=== PATIENT | female | born 1935 | race Caucasian/White ===

== ENCOUNTER → 2016-09-29 | Outpatient (CLI) | payer MEDICARE ==
--- NOTE | 2016-09-29 14:08 | Diagnostic Imaging Report ---
EXAM: Bilateral digital diagnostic mammography, with computer aided detection system (CAD). Left breast ultrasound. DATE: September 29, 2016. COMPARISON: May 13, 2012. March 17, 2011. INDICATION: A 80-year-old female, palpable abnormality in the left breast. FINDINGS: There are scattered fibroglandular densities. There are benign secretory calcifications as well as benign oil cysts. The marker denoting the area of palpable concern in the left breast is in the upper-inner quadrant and does overlie an oil cyst. There is no suspicious mammographic abnormality within either breast. Targeted ultrasound of the left breast in the area of palpable concern was performed. At the area of palpable abnormality, there is a very superficially located round circumscribed anechoic mass without internal blood flow measuring 4.8 x 4.8 x 4.3 mm in size. This is compatible with the benign oil cyst noted on mammography. There is a hyperechoic lesion in the left breast at the 11 o'clock position measuring 2.6 x 1.9 x 2.0 mm in size with shadowing which most likely relates to a small calcification. Additional small calcifications are also noted. There is a peripherally hyperechoic lesion in the left breast at the 10 o'clock position which is very superficially located and likely correlates with an additional oil cyst measuring 4.4 x 4.4 x 4.6 mm in size. IMPRESSION: 1. Benign oil cyst correlating with the area of palpable concern. No mammographic or sonographic evidence of malignancy in the right or left breast. Recommend annual screening mammography and clinical breast exam. ACR BI-RADS Category 2: Benign findings. Result letter will be mailed to the patient. Note: At least 10% of breast cancer is not imaged by mammography. Dictated by: Dictated on workstation # [id number]
== END ==
LOC: RAD 09:50
PROVIDERS: ATTEND Family Medicine
DX: N63 Unspecified lump in breast (principal)
CPT/HCPCS: 76642; G0204